=== PATIENT | male | born 1980 | race Caucasian/White ===

== ENCOUNTER 2017-10-27 09:53 | Emergency (ER) | payer SELFPAY ==
[2017-10-27] MEDS: KETOROLAC 30 MG INJ IM (11:37)
[2017-10-27] MEDS: DIPHTH/TET/ACEL PERTUSS (ADULT) 0.5 ML VIAL IM* (11:38)
== END 2017-10-27 12:02 | disposition home or self-care (01) ==
LOC: FTE 09:53
DX: S51.052A Open bite, left elbow, initial encounter (principal); F17.210 Nicotine dependence, cigarettes, uncomplicated; W54.0XXA Bitten by dog, initial encounter; Y92.9 Unspecified place or not applicable; Z23 Encounter for immunization
CPT/HCPCS: 90471; 90715; 96372; 99284-25